=== PATIENT | female | born 1960 | race Hispanic/Latino ===

== ENCOUNTER 2022-11-19 16:46 | Emergency (ER) | payer OTHER, SELFPAY ==
[2022-11-19] MEDS ORDERED: Meloxicam 7.5 MG TAB PO SCH (17:45)
== END 2022-11-19 19:03 | disposition home or self-care (01) ==
LOC: CSHERS 16:46
DX: M19.022 Primary osteoarthritis, left elbow (principal); M19.021 Primary osteoarthritis, right elbow; M25.512 Pain in left shoulder; M25.511 Pain in right shoulder
CPT/HCPCS: 36416; 93005; 99284